=== PATIENT | male | born 1960 | race Caucasian/White ===

== ENCOUNTER 2017-07-21 08:03 | Emergency (ER) | payer OTHER, MEDICAID ==
[~2017-07-21] VITALS: Ht 180.3 cm; Wt 72.0 kg
[~2017-07-21 08:03] MED LIST: HYDR12.522 PO; IBUP-812 PO; LISI-230 PO
[2017-07-21 08:36] LABS: BASOPHILS % (AUTO) 0.3 % (0-1); EOSINOPHILS # (AUTO) 0.1 X10'3 (0-0.9); HEMATOCRIT 45.8 % (42.0-52.0); HEMOGLOBIN 15.6 g/dl (14.0-17.9); LYMPHOCYTES # (AUTO) 2.1 X10'3 (1.1-4.8); LYMPHOCYTES % (AUTO) 16.9 % (21-51); MEAN CORPUSCULAR HEMOGLOBIN 31.4 PG (27.0-31.0); MEAN CORPUSCULAR HGB CONC 34.1 % (33.0-36.5); MEAN PLATELET VOLUME 8.6 FL (7.4-10.4); MONOCYTES # (AUTO) 0.7 X10'3 (0-0.9); MONOCYTES % (AUTO) 5.2 % (2-12); NEUTROPHILS # (AUTO) 9.7 X10'3 (1.8-7.7); NEUTROPHILS % (AUTO) 76.6 % (42-75); PLATELET COUNT 211 X10'3 (140-440); RED BLOOD COUNT 4.98 X10'6 (4.70-6.10); RED CELL DISTRIBUTION WIDTH 13.3 % (11.5-14.5); WHITE BLOOD COUNT 12.7 X10'3 (4.5-11.0)
[2017-07-21 08:45] LABS: CLARITY,URINE CLEAR (Clear); COLOR,URINE YELLOW (Yellow); GLUCOSE, URINE NEGATIVE (Neg); KETONES,URINE 15 mg/dl (Neg); LEUKOCYTE ESTERASE ,URINE NEGATIVE (Neg); NITRITES, URINE NEGATIVE (Neg); OCCULT BLOOD,URINE TRACE-INTACT (Neg); PH,URINE 6.5 (4.8-8.0); PROTEIN,URINE 100 mg/dl (Neg)
[2017-07-21 08:47] LABS: UA COLLECTION TYPE CLN CATCH MIDSTREAM
[2017-07-21 08:53] LABS: INR 1.1 INR; PROTHROMBIN TIME 11.3 SECONDS (9.0-12.0)
[2017-07-21 08:54] LABS: ALANINE AMINOTRANSFERASE 21 U/L (12-78); ALKALINE PHOSPHATASE 67 IU/L (46-116); ANION GAP 14 (8-16); ASPARTATE AMINO TRANSFERASE 25 U/L (10-37); BILIRUBIN,TOTAL 1.1 MG/DL (0.1-1.0); BLOOD UREA NITROGEN 20 MG/DL (7-18); BUN/CREATININE RATIO 13.4 (5.4-32.0); CALCIUM 9.2 MG/DL (8.5-10.1); CHLORIDE 98 MMOL/L (99-107); CREATININE 1.49 MG/DL (0.60-1.10); GLUCOSE 110 MG/DL (70-104); POTASSIUM 3.6 MMOL/L (3.5-5.1); SODIUM 137 MMOL/L (135-145); TOTAL CARBON DIOXIDE 24.6 MMOL/L (24-32); eGFR 49 ML/MIN
[2017-07-21 08:55] LABS: BACTERIA,URINE NONE SEEN /HPF (Neg); RBC,URINE 0-2 /HPF (0-2); SQUAMOUS EPITHELIAL CELL,UR NONE SEEN /LPF (FEW); WBC,URINE NONE SEEN /HPF (0-4)
[2017-07-21 09:15] VITALS: BP 148/82
[2017-07-21] MEDS ORDERED: ONDA4TAB9 SL (09:18)
== END 2017-07-21 09:43 | disposition home or self-care (01) ==
LOC: ER 08:03
DX: R10.84 Generalized abdominal pain (principal); R11.2 Nausea with vomiting, unspecified; M54.9 Dorsalgia, unspecified; R07.89 Other chest pain; I10 Essential (primary) hypertension; F17.210 Nicotine dependence, cigarettes, uncomplicated; F12.90 Cannabis use, unspecified, uncomplicated; Z90.49 Acquired absence of other specified parts of digestive tract; Z98.890 Other specified postprocedural states; Z56.0 Unemployment, unspecified; Z79.899 Other long term (current) drug therapy
CPT/HCPCS: 36415; 80053; 81001; 85025; 85610; 99284; J7030

== ENCOUNTER 2022-02-05 09:04 | Emergency (ER) | payer BC, MEDICAID, OTHER ==
[~2022-02-05] VITALS: Ht 180.3 cm; Wt 77.3 kg
[2022-02-05 09:08] VITALS: BP 151/93
[2022-02-05] MEDS ORDERED: ONDA4TAB12 PO (10:19)
[2022-02-05] MEDS ORDERED: ketorolac trometh inj. 60 MG/2 ML VIAL IM ONE (10:20)
== END 2022-02-05 10:41 | disposition home or self-care (01) ==
LOC: ER 09:05
DX: B34.9 Viral infection, unspecified (principal); Z20.822 Contact with and (suspected) exposure to COVID-19; R51.9 Headache, unspecified; R11.2 Nausea with vomiting, unspecified; I10 Essential (primary) hypertension; F12.90 Cannabis use, unspecified, uncomplicated; Z90.89 Acquired absence of other organs; Z98.890 Other specified postprocedural states; Z56.0 Unemployment, unspecified; Z79.899 Other long term (current) drug therapy
CPT/HCPCS: 87502; 87503; 87635; 96372; 99283; C9803; J1885

== ENCOUNTER 2023-01-20 13:06 | Emergency (ER) | payer BC ==
[~2023-01-20] VITALS: Ht 180.3 cm; Wt 79.3 kg
[~2023-01-20 13:06] MED LIST changes: +ONDA4TAB12 PO
[2023-01-20 13:26] VITALS: BP 150/85; PULSE 71; TEMP 98.3; O2SAT 99
[2023-01-20 14:19] LABS: BASOPHILS # (AUTO) 0.1 X10'3 (0-0.2); BASOPHILS % (AUTO) 0.6 % (0-1); EOSINOPHILS # (AUTO) 0.1 X10'3 (0-0.9); EOSINOPHILS % (AUTO) 1.6 % (0-6); HEMATOCRIT 43.6 % (42.0-52.0); HEMOGLOBIN 14.8 g/dl (14.0-17.9); LYMPHOCYTES # (AUTO) 1.6 X10'3 (1.1-4.8); LYMPHOCYTES % (AUTO) 17.2 % (21-51); MEAN CORPUSCULAR HEMOGLOBIN 32.4 PG (27.0-31.0); MEAN CORPUSCULAR HGB CONC 33.9 g/dL (33.0-36.5); MEAN CORPUSCULAR VOLUME 95.7 FL (78-98); MEAN PLATELET VOLUME 8.7 FL (7.4-10.4); MONOCYTES # (AUTO) 0.7 X10'3 (0-0.9); MONOCYTES % (AUTO) 8.1 % (2-12); NEUTROPHILS # (AUTO) 6.6 X10'3 (1.8-7.7); NEUTROPHILS % (AUTO) 72.5 % (42-75); PLATELET COUNT 258 X10'3 (140-440); RED BLOOD COUNT 4.55 X10'6 (4.70-6.10); RED CELL DISTRIBUTION WIDTH 13.4 % (11.5-14.5)
[2023-01-20 14:22] LABS: BILIRUBIN,URINE NEGATIVE (Neg); CLARITY,URINE CLEAR (Clear); COLOR,URINE YELLOW (Yellow); GLUCOSE, URINE NEGATIVE (Neg); KETONES,URINE NEGATIVE (Neg); LEUKOCYTE ESTERASE ,URINE NEGATIVE (Neg); NITRITES, URINE NEGATIVE (Neg); OCCULT BLOOD,URINE TRACE-INTACT (Neg); PROTEIN,URINE 30 mg/dl (Neg); UROBILINOGEN,URINE 0.2 E.U/dL (0.2-1.0)
[2023-01-20 14:31] LABS: UA COLLECTION TYPE CLN CATCH MIDSTREAM
[2023-01-20 14:32] LABS: BACTERIA,URINE NONE SEEN /HPF (Neg); SQUAMOUS EPITHELIAL CELL,UR FEW /LPF (FEW)
[2023-01-20 14:33] LABS: WBC,URINE 0-4 /HPF (0-4)
[2023-01-20 14:35] LABS: ALANINE AMINOTRANSFERASE 19 U/L (12-78); ALBUMIN 4.1 G/DL (3.4-5.0); ALBUMIN/GLOBULIN RATIO 1.1 (1.1-1.5); ALKALINE PHOSPHATASE 79 IU/L (46-116); ANION GAP 10 (8-16); ASPARTATE AMINO TRANSFERASE 42 U/L (10-37); BILIRUBIN,TOTAL 0.6 MG/DL (0.1-1.0); BLOOD UREA NITROGEN 19 MG/DL (7-18); BUN/CREATININE RATIO 15.3 (10.0-20.0); CALCIUM 9.5 MG/DL (8.5-10.1); CHLORIDE 103 MMOL/L (99-107); CREATININE 1.24 MG/DL (0.60-1.10); GLUCOSE 100 MG/DL (70-104); POTASSIUM 3.9 MMOL/L (3.5-5.1); SODIUM 138 MMOL/L (135-145); TOTAL CARBON DIOXIDE 25.3 MMOL/L (24-32); eCRCL 65 ML/MIN; eGFR 59 ML/MIN
[2023-01-20 14:43] LABS: ETHANOL < 10 MG/DL (<10); THYROID STIMULATING HORMONE 2.17 ulU/ml (0.34-4.50)
[2023-01-20] MEDS ORDERED: ketorolac trometh. 30mg/ml inj. IM ONE (15:00)
[2023-01-20] MEDS ORDERED: proCHLORperazine 10 MG/2 ml inj IM ONE (15:00)
[2023-01-20 15:10] LABS: URINE AMPHETAMINE SCREEN NEGATIVE (Neg); URINE BARBITUATE SCREEN NEGATIVE (Neg); URINE BENZODIAZEPINES SCREEN NEGATIVE (Neg); URINE CANNABINOID SCREEN POSITIVE (Neg); URINE COCAINE SCREEN NEGATIVE (Neg); URINE METHADONE SCREEN NEGATIVE (Neg); URINE OPIATE SCREEN NEGATIVE (Neg); URINE PHENCYCLIDINE SCREEN NEGATIVE (Neg)
[2023-01-20 15:44] VITALS: RESP 16
== END 2023-01-20 16:20 | disposition home or self-care (01) ==
LOC: ER 13:06
DX: G44.209 Tension-type headache, unspecified, not intractable (principal); I10 Essential (primary) hypertension; F12.90 Cannabis use, unspecified, uncomplicated; Z90.49 Acquired absence of other specified parts of digestive tract; Z98.890 Other specified postprocedural states; Z56.0 Unemployment, unspecified; Z79.899 Other long term (current) drug therapy
CPT/HCPCS: 36415; 70450; 71045; 80053; 80305; 80320; 81001; 82948; 84443; 85025; 96372; 99285; J0780; J1885

== ENCOUNTER 2023-06-11 09:34 | Emergency (ER) | payer OTHER, BC ==
[~2023-06-11] VITALS: Ht 180.3 cm; Wt 79.5 kg
[2023-06-11 11:04] VITALS: BP 117/87; PULSE 59; RESP 16; TEMP 97.9; O2SAT 96
== END 2023-06-11 11:07 | disposition home or self-care (01) ==
LOC: ER 09:35
DX: M25.531 Pain in right wrist (principal); I10 Essential (primary) hypertension; Z90.49 Acquired absence of other specified parts of digestive tract; F12.90 Cannabis use, unspecified, uncomplicated; W01.0XXA Fall on same level from slipping, tripping and stumbling without subsequent striking against object, initial encounter; Y93.89 Activity, other specified; Y92.89 Other specified places as the place of occurrence of the external cause; Y99.8 Other external cause status
CPT/HCPCS: 29125; 73110; 99284

== ENCOUNTER 2023-06-17 08:00 | Emergency (ER) | payer BC, OTHER ==
[~2023-06-17] VITALS: Ht 180.3 cm; Wt 79.5 kg
[2023-06-17 08:12] VITALS: BP 121/74; PULSE 54; RESP 14; O2SAT 97
== END 2023-06-17 09:26 | disposition home or self-care (01) ==
LOC: ER 08:01
DX: S66.911D Strain of unspecified muscle, fascia and tendon at wrist and hand level, right hand, subsequent encounter (principal); I10 Essential (primary) hypertension; Z90.49 Acquired absence of other specified parts of digestive tract; F17.210 Nicotine dependence, cigarettes, uncomplicated; F12.90 Cannabis use, unspecified, uncomplicated
CPT/HCPCS: 99281

== ENCOUNTER 2023-07-20 10:08 | Emergency (ER) | payer BC, OTHER ==
[~2023-07-20] VITALS: Ht 180.3 cm; Wt 77.8 kg
[2023-07-20 10:39] VITALS: TEMP 97.8
[2023-07-20 12:00] LABS: BASOPHILS % (AUTO) 0.3 % (0-1); EOSINOPHILS # (AUTO) 0.3 X10'3 (0-0.9); HEMATOCRIT 44.1 % (42.0-52.0); HEMOGLOBIN 14.7 g/dl (14.0-17.9); LYMPHOCYTES # (AUTO) 1.7 X10'3 (1.1-4.8); LYMPHOCYTES % (AUTO) 23.5 % (21-51); MEAN CORPUSCULAR HEMOGLOBIN 31.8 PG (27.0-31.0); MEAN CORPUSCULAR HGB CONC 33.4 g/dL (33.0-36.5); MEAN CORPUSCULAR VOLUME 95.2 FL (78-98); MONOCYTES # (AUTO) 0.5 X10'3 (0-0.9); MONOCYTES % (AUTO) 6.4 % (2-12); NEUTROPHILS # (AUTO) 4.9 X10'3 (1.8-7.7); NEUTROPHILS % (AUTO) 65.8 % (42-75); PLATELET COUNT 234 X10'3 (140-440); RED BLOOD COUNT 4.63 X10'6 (4.70-6.10); RED CELL DISTRIBUTION WIDTH 13.3 % (11.5-14.5); WHITE BLOOD COUNT 7.4 X10'3 (4.5-11.0)
[2023-07-20 12:10] LABS: ALANINE AMINOTRANSFERASE 20 U/L (12-78); ALBUMIN 4.2 G/DL (3.4-5.0); ALBUMIN/GLOBULIN RATIO 1.1 (1.1-1.5); ALKALINE PHOSPHATASE 81 IU/L (46-116); ANION GAP 11 (8-16); ASPARTATE AMINO TRANSFERASE 24 U/L (10-37); BILIRUBIN,TOTAL 0.3 MG/DL (0.1-1.0); BLOOD UREA NITROGEN 20 MG/DL (7-18); BUN/CREATININE RATIO 15.9 (10.0-20.0); CALCIUM 9.3 MG/DL (8.5-10.1); CHLORIDE 104 MMOL/L (99-107); CREATININE 1.26 MG/DL (0.60-1.10); GLUCOSE 120 MG/DL (70-104); LIPASE 94 U/L (16-77); POTASSIUM 3.7 MMOL/L (3.5-5.1); SODIUM 140 MMOL/L (135-145); TOTAL CARBON DIOXIDE 24.7 MMOL/L (24-32); TOTAL PROTEIN 8.2 G/DL (6.4-8.2); eCRCL 64 ML/MIN; eGFR 58 ML/MIN
[2023-07-20 16:24] VITALS: BP 155/95; PULSE 52; RESP 16; O2SAT 98
== END 2023-07-20 16:27 | disposition home or self-care (01) ==
LOC: ER 10:09
DX: R19.7 Diarrhea, unspecified (principal); I10 Essential (primary) hypertension; F12.90 Cannabis use, unspecified, uncomplicated; Z56.0 Unemployment, unspecified; Z98.890 Other specified postprocedural states; Z79.899 Other long term (current) drug therapy
CPT/HCPCS: 36415; 80053; 83690; 85025; 99283

== ENCOUNTER → 2023-08-10 | Outpatient (CLI) | payer BC | END | disposition home or self-care (01) | LOC: RAD 16:01 | PROVIDERS: ATTEND Family Medicine | DX: M79.672 Pain in left foot (principal) | CPT/HCPCS: 73630 ==

== ENCOUNTER 2024-04-01 07:36 | Emergency (ER) | payer BC ==
[~2024-04-01] VITALS: Ht 180.3 cm; Wt 63.1 kg
[~2024-04-01 07:36] MED LIST changes: +ONDA-243 PO; -ONDA4TAB12 PO
[2024-04-01] MEDS ORDERED: ATOR20TA66 PO (07:52)
[2024-04-01] MEDS ORDERED: LISI20TA28 PO (07:52)
[2024-04-01] MEDS ORDERED: LEVO88TA7 PO (07:52)
[2024-04-01] MEDS ORDERED: FLO0.4C PO (07:52)
[2024-04-01] MEDS: guaiFENesin/DM 10ml UD oral syrup PO ONE (08:22)
[2024-04-01] MEDS: acetaminophen 325mg tablet PO ONE (08:23)
[2024-04-01 09:09] VITALS: BP 135/82; PULSE 75; RESP 14; O2SAT 99
[2024-04-01] MEDS ORDERED: ROBDML PO (09:24)
[2024-04-01 09:40] VITALS: TEMP 98.1
[2024-04-01] MEDS ORDERED: TAM75C PO (09:40)
== END 2024-04-01 09:45 | disposition home or self-care (01) ==
LOC: ER 07:37
DX: J11.1 Influenza due to unidentified influenza virus with other respiratory manifestations (principal); Z20.822 Contact with and (suspected) exposure to COVID-19; I10 Essential (primary) hypertension; E03.9 Hypothyroidism, unspecified; Z79.899 Other long term (current) drug therapy; Z90.49 Acquired absence of other specified parts of digestive tract; Z87.19 Personal history of other diseases of the digestive system
CPT/HCPCS: 36415; 87502; 87503; 87811; 99283

== ENCOUNTER 2024-08-20 15:41 | Emergency (ER) | payer BC ==
[~2024-08-20] VITALS: Ht 180.3 cm; Wt 76.7 kg
[~2024-08-20 15:41] MED LIST changes: +ATOR20TA66 PO; +FLO0.4C PO; -HYDR12.522 PO; -IBUP-812 PO; +LEVO88TA7 PO; -LISI-230 PO; +LISI20TA28 PO; -ONDA-243 PO
[2024-08-20 15:55] VITALS: BP 140/87; PULSE 64; RESP 16; TEMP 99.5; O2SAT 98
--- NOTE | 2024-08-20 16:17 | Physician Documentation ---
History of Present Illness ~ Chief Complaint: Flu Symptoms Stated Complaint: "I THINK I HAVE THE FLU" Time Seen by MD: 16:25 Primary Medical Doctor: [facility] IN [place], [place] HPI This is a 63-year-old male presenting with cough, body aches, and nausea onset yesterday. Patient reports he has had a single episode of vomiting. Medication Reconciliation Allergies: Coded Allergies: No Known Allergies (Unverified , 09/10/22) Scheduled Atorvastatin Calcium (Atorvastatin Calcium), 1 TAB PO DAILY, (Reported) Guaifenesin (Mucinex), 1 TAB PO Q12H Levothyroxine Sodium (Levothyroxine Sodium), 1 TAB PO DAILY, (Reported) Lisinopril (Lisinopril), 1 TAB PO DAILY, (Reported) Sodium Chloride (Saline Nasal [place]), 1 SPRAYS BOTH[place]ARES Q6H Scheduled PRN Ondansetron 8mg ODT (Ondansetron Odt), 1 TAB PO TID PRN for nausea/vomiting Miscellaneous Medications Tamsulosin Hcl (Flomax), 0.8 MG PO, (Reported) Past Medical History Past Medical History: Hypertension, Hemorrhoids Past Surgical History: appendectomy, orthopedic surgeries Alcohol Use: None Drug Use: marijuana Lives with: Other Lives In: Home Occupation: unemployed Physical Exam Vital Signs: Temperature: 99.5, Source: Oral, Heart Rate: 64, Respiratory Rate: 16, BP: 140/87, Pulse Oximetry: 98, Weight: 76.700 Oxygen Flow Rate: 0 Physical Exam General: Alert, no apparent distress. Neck: Full range of motion. Respiratory: Lungs clear, no respiratory distress. Chest: No accessory muscle use. Cardiovascular: Regular rate and rhythm, no murmurs. Gastrointestinal: Soft, nontender, nondistended. Bowels sounds present. Extremities: Normal range of motion, no deformity. Neurologic: Oriented x4. Psychiatric: Normal mood and affect. Skin: Normal color, warm and dry. No edema, no ecchymosis. Progress Results/Orders Results/Orders Orders - SMITA AN RELOCATION COORDINATOR Chest,Single View (08/20/24 16:32) Completed Orders - SMITA AN RELOCATION COORDINATOR Chest,Single View (08/20/24 16:32) Vital Signs 08/20/24 15:55 Temp 99.5 Pulse 64 Resp 16 B/P (MAP) 140/87 Pulse Ox 98 O2 Flow Rate 0 Laboratory Tests Test 08/20/24 16:44 SARS-CoV-2 Antigen (Rapid) Negative EKG/XRAY/CT/US/VASC/MRI Chest X-Ray : Additional Comments [facility] [address] [facility], [facility] [id number] DIAGNOSTIC RADIOLOGY Patient: PARUL BLACKMON Medical Record: [id number] [facility] : 1960, Age: 63 Sex: Male Location: ER Patient Status: [facility] ER Service Date/Time: 08/20/24/ 1632 Ordering Physician: SMITA AN RELOCATION COORDINATOR Exam: CHEST,SINGLE VIEW CHEST RADIOGRAPH Indication: cough Technique: Single frontal view of the chest was obtained COMPARISON: DI CHEST,SINGLE VIEW on DOS: 01/20/23 FINDINGS: Lines and Tubes: None Lungs: No focal consolidative opacity. Pleura: No effusion. No pneumothorax. Cardiomediastinal contours: Unremarkable Bones: Scattered osseous degenerative changes. IMPRESSION: No acute cardiopulmonary abnormality. Electronically Signed by:YASH STEVENS MD Date & Time: 08/20/24 1643 Dictated by: YASH STEVENS MD Dictation date and time: 08/20/24 1630 Primary Care Provider: NO PRIMARY CARE PROVIDER cc: SMITA AN RELOCATION COORDINATOR ~ Medical Decision Making Findings MSE performed in triage and patient returned to ED lobby by nursing staff to await available ED room Differential Dx:Considerations: Include: CVA, Dehydration, Drug toxicity, Electrolyte imbalance, Influenza, Meningitis, Mycardial infarction, Pneumonia, Pneumonitis, Pulmonary embolus, Respiratory failure, Sepsis, UTI, Viral Syndrome Additional Comment Well-appearing. Normal CXR. NEG Covid-19 test. Supportive care discussed. Departure Time of Disposition: 17:22 Disposition: 01 HOME / SELF CARE / HOMELESS Impression: Primary Impression: Viral infection Condition: Stable Discharge Instructions: Viral Illness Additional Instructions: Normal chest xray with no evidence of pneumonia. NEG Covid-19 test. You likely do have some sort of virus. Please stay well hydrated and use mucinex and nasal saline for symptom relief along with acetaminophen for pain per label instructions. See your primary care for recheck next week. Return if worse. Departure Forms: Excuse form Work or School Excused From: Work Excuse beginning now through the following date: Aug 22, 2024 Referrals: NO PRIMARY CARE PROVIDER (PCP) Prescriptions Ondansetron 8mg ODT (Ondansetron Odt) 8 Mg Tab.rapdis 1 TAB PO TID PRN for nausea/vomiting, #10 TAB Prov: SMITA AN NP 08/20/24 Sodium Chloride (Saline Nasal [place]) 0.65 % [place] 1 SPRAYS B[place]ARES Q6H for 7 Days, #60 ML 0 Refills Prov: SMITA AN NP 08/20/24 Guaifenesin (Mucinex) 1,200 Mg Tbbp.12hr 1 TAB PO Q12H for cough for 15 Days, #30 TAB 0 Refills Prov: SMITA AN NP 08/20/24 Education Educated: Patient Educated regarding: diagnosis, treatment, prognosis, need for follow up Signature Scribe Signature: no scribe Attestation: The note accurately reflects work and decisions made by me.Smita Anderson NP 08/20/24 17:26 ROSELYN KWON Aug 20, 2024 16:17 SMITA AN NP Aug 20, 2024 16:56
--- NOTE | 2024-08-20 16:45 | RADIOLOGY REPORT ---
CHEST RADIOGRAPH Indication: cough Technique: Single frontal view of the chest was obtained COMPARISON: DI CHEST,SINGLE VIEW on DOS: 01/20/23 FINDINGS: Lines and Tubes: None Lungs: No focal consolidative opacity. Pleura: No effusion. No pneumothorax. Cardiomediastinal contours: Unremarkable Bones: Scattered osseous degenerative changes. IMPRESSION: No acute cardiopulmonary abnormality.
[2024-08-20] MEDS ORDERED: SODI30SP3 BOTHNARES (17:23)
[2024-08-20] MEDS ORDERED: GUAI120015 PO (17:23)
[2024-08-20] MEDS ORDERED: ONDA-245 PO (17:24)
== END 2024-08-20 18:06 | disposition home or self-care (01) ==
LOC: ER 15:41
DX: B34.9 Viral infection, unspecified (principal); I10 Essential (primary) hypertension; F12.90 Cannabis use, unspecified, uncomplicated; Z90.49 Acquired absence of other specified parts of digestive tract; Z79.899 Other long term (current) drug therapy; Z56.0 Unemployment, unspecified; Z20.822 Contact with and (suspected) exposure to COVID-19
CPT/HCPCS: 36415; 71045; 87811; 99284